=== PATIENT | female | born 1955 | race Caucasian/White ===

== ENCOUNTER → 2021-11-11 16:31 | Outpatient (CLI) | payer MEDICARE, SELFPAY ==
--- NOTE | 2021-11-11 16:37 | DI.MRI.S_ITS ---
PROCEDURE: MR PELIS WO/W CON INDICATIONS: Light chain (AL) amyloidosis. Right labial mass. TECHNIQUE: Noncontrast coronal HASTE; 3-plane nonbreath-hold T2 FSE, axial T1 FSE with and without fat saturation obtained through the lower pelvis including the labia. After the administration of contrast, axial and sagittal VIBE or 2-D FLASH with fat saturation obtained through the lower pelvis including the labia. Optional diffusion weighted imaging or ADC may be performed. COMPARISON: [facility], , US EXTREMITY LIMITED, 11/11/2021, 9:36. FINDINGS: Image quality: Adequate. Soft tissues: Soft tissue edema is present in the soft tissues of the right labia extending anteriorly and superiorly towards the mons pubis. Skin thickening and enhancement of the right labia is also present. At the right aspect of the labia, abutting the skin, a 1.9 x 0.9 x 1.2 centimeter ovoid structure is present (series 3, image 17 and series 4, image 21), likely corresponding to the finding on the recent ultrasound. It is T2 hypointense and on post-contrast images demonstrates mild peripheral enhancement, with no definite or obious internal enhancement identified. A 2nd, similar finding is present in the soft tissues anteriorly and superiorly (for example series 5, image 9). This measures 1.3 x 0.7 x 1.8 centimeters (series 3, image 13 and series 5, image 9). There may be a thin tract bridging the 2 structure/collections (for example series 6, image 18). Similar findings not identified in the left labia. Urethra: Urethra is normal in caliber. No diverticula identified. Genitalia: Visualized vagina is unremarkable in appearance. no evidence of a Court's duct cyst or Bartholin's gland cyst. Peritoneum and bowel: Nonspecific pelvic free fluid is present. Visualized inferior colon loops, rectum, and anus appear unremarkable. IMPRESSION: A 1.9 centimeter structure/collection is present in the soft tissues of the right labia likely corresponding to the finding on the recent ultrasound. It is suspicious for a small abscess, with adjacent soft tissue edema and skin thickening present. A 2nd, similar finding is present in the soft tissues anteriorly and superiorly, with a possible thin tract bridging the two structures. Other etiologies are not excluded however and specific diagnosis may not be possible by imaging. Could consider tissue sampling/aspiration of the superficial/palpable finding. Imaging follow-up with ultrasound or MRI could be obtained as clinically indicated, for example after trial of therapy to assess for interval change. Dictated by: Matt Devries M.D. on 11/11/2021 at 19:20 Approved by: Matt Devries M.D. on 11/11/2021 at 19:46
== END ==
PROVIDERS: PCP Family Medicine; Referring Provider Nurse Practitioner Family; Visit Provider Nurse Practitioner Family
DX: N94.89 Other specified conditions associated with female genital organs and menstrual cycle (principal); E85.81 Light chain (AL) amyloidosis
CPT/HCPCS: 72197; A9579